=== PATIENT | female | born 1965 | race Caucasian/White ===

== ENCOUNTER 2017-07-20 09:00 | Outpatient (RCR) | payer OTHER ==
[2015-09-18 12:03] VITALS: Wt 67.9 kg
[2017-07-19 14:33] VITALS: BP 133/64
[2017-07-19 14:46] LABS: PLATELET COUNT, AUTOMATED 314 K/uL (150-450)
[~2017-07-20 09:00] MED LIST: ALB17R INH; AZIT500T47 PO; CHOL200074 PO; DOCU-202 PO; DOCU-416 PO; HYD5L PO; IBUP200C71 PO; LOR1 PO; ONDA8TAB94 PO; OXYC-865 PO; PER PO; PROC10TA4 PO; PYRI100T57 PO; PYRI100T59 PO; PYRI200T9 PO; TAMO20TA24 PO
[2017-07-20 09:13] VITALS: BP 126/79
--- NOTE | 2017-07-20 10:28 | RADIOLOGY IMAGING REPORT ---
FACILITY: [facility] PATIENT NAME: VIRI ALVARADO : [id number] MR: [id number] V: [id number] EXAM DATE: [id number] ORDERING PHYSICIAN: ALEX AGARWAL TECHNOLOGIST: Jie Castellanos PROCEDURE:RIGHT DIGITAL DIAGNOSTIC MAMMOGRAM WITH CAD ASSISTED INTERPRETATION & 3D TOMOSYNTHESIS COMPARISON:Prior mammograms 07/07/16, 07/06/15 INDICATIONS:HX BREAST CA/LEFT MASTECTOMY FINDINGS: Moderately heterogeneous fibroglandular tissue is seen throughout the Right breast. The parenchymal pattern has remained stable allowing for difference in mammographic technique & patient positioning. There is no evidence of malignant appearing mass, malignant appearing calcifications or other secondary sign of malignancy in the Right breast. DIAGNOSTIC CATEGORY 2--BENIGN FINDING. RECOMMENDATIONS: ROUTINE MAMMOGRAM AND CLINICAL EVALUATION. IMPRESSION: BIRADS 2: Benign finding No significant abnormality of the Right breast is seen. Dictated by: Caro Moreno M.D. on 07/19/2017 at 15:58 Transcribed by: MASOUD on 07/20/2017 at 8:46 Approved by: Caro Moreno M.D. on 07/20/2017 at 10:26 [facility]
--- NOTE | 2017-07-20 18:31 | ONCOLOGY FOLLOW UP NOTE ---
EVENT DATE: July 20, 2017 DIAGNOSIS Stage IIB (pT2 pN1 cM0) left breast cancer. CHIEF COMPLAINT The patient is here today for followup of her left breast cancer on adjuvant hormonal therapy with tamoxifen. ONCOLOGY HISTORY The patient is 51-year-old premenopausal woman. The patient is here today for her third cycle of adjuvant weekly Taxol for her breast cancer. She missed her last dose because [place]. Apart from having some headache , the patient really is doing very well and totally asymptomatic. The patient is here today for her sixth week of Taxol adjuvant therapy for her left breast cancer. The patient is totally asymptomatic and she is tolerating treatment really very well so far. PRESENTATION Abnormal screening mammogram done on July 06, 2015 which showed echogenically dense breasts. There was asymmetry in the upper outer quadrant of the left breast. DIAGNOSTIC EVALUATION Left digital diagnostic mammogram with whole breast ultrasound, left side, with axilla, done on July 30, 2015. The annual exam was highly suggestive of malignancy. A mammogram showed the initial architectural distortion in the upper outer aspect of the left breast, and the ultrasound did reveal poorly defined area of shadowing at 1 o'clock of the left breast, which correlates with the mammographic finding. PROCEDURES 1. Ultrasound guided left breast biopsy of the ill-defined mass at the 2 o' clock position of the left breast done on August 06, 2015. 2. Left breast mastectomy and sentinel lymph node biopsy done on September 17, 2015. PATHOLOGY 1. Positive for invasive lobular carcinoma, grade II/III, ER 37.6% positive, MN 39.9% positive, HER2/stanislav negative by immunohistochemistry. Ki-67 of 0.5%, p53 of 0.3%. 2. Pathology from the left breast mastectomy done on September 17, 2015 revealed 5 cm x 2.5 cm invasive lobular carcinoma, low grade, with negative margins. Tumor extend to within 1.25 cm of the deep margin. One out of 5 lymph nodes sampled came back positive for metastasis. ER/MN positive, HER/stanislav negative and Ki-67 of 0.6%, p53 was 0.3%. STAGE Stage IIB (pT2 pN1 cM0) TREATMENT The patient started adjuvant chemotherapy with dose dense AC with Adriamycin and cyclophosphamide on October 20, 2015. Patient completed four cycles of dose- dense AC on December 03, 2015. The patient started adjuvant weekly Taxol on November. The patient completed 12 courses of weekly Taxol on March 21, 2016. The patient started adjuvant hormonal therapy with tamoxifen 20 mg daily the beginning of March 2016. HISTORY OF PRESENT ILLNESS Patient is here today for followup of her left breast cancer on adjuvant hormonal therapy with tamoxifen. She is doing fine currently except for residual neuropathy from her previous chemotherapy with tingling and numbness in the hands and feet. PAST MEDICAL HISTORY History of left breast cancer diagnosed 2016. PAST SURGICAL HISTORY 1. on April 03, 1994. 2. Adenoidectomy. 3. Left breast mastectomy and sentinel lymph node biopsy done on September 17, 2015. SOCIAL HISTORY The patient is . She has two children, a son and a daughter. She works as university cosmetology educator. She had about three drinks per month. Denies any abuse of tobacco or illicit drugs. FAMILY HISTORY Father had lung cancer with brain metastasis in his seventies. A grandmother had breast cancer at age of seventy years of age. CURRENT MEDICATIONS 1. Ativan 1 mg q.4-6h. p.r.n. for nausea and vomiting. 2. Zofran 8 mg q.8h. p.r.n. for nausea and vomiting. 3. Compazine 10 mg q.6h. p.r.n. for nausea and vomiting. ALLERGIES PENICILLIN, but the patient does not know exactly the reaction, as it happened when she was a baby. REVIEW OF SYSTEMS CONSTITUTIONAL: No appetite or weight change. No fever, chills or sweating. No recent infection. HEENT: Ears: No tinnitus or hearing problem. Nose: The patient has some epistaxis. Throat: No sore throat or mouth ulcers. Eyes: No diplopia or visual changes. RESPIRATORY: No shortness of breath. No cough, expectoration or hemoptysis. CARDIOVASCULAR: No chest pain, orthopnea, or paroxysmal nocturnal dyspnea (PND) . No edema. No palpitations. GASTROINTESTINAL: No nausea or vomiting. No diarrhea or constipation. No change in bowel movements. No heartburn or swallowing difficulties. No abdominal pain. No jaundice. No hematemesis, melena or rectal bleeding. GENITOURINARY: No hematuria or dysuria. MUSCULOSKELETAL: No pain in the muscles, joints or bones. NEUROLOGICAL: The patient has tingling and numbness in the hands and feet. HEMATOLOGIC/LYMPHATIC: No bleeding or easy bruising. No weakness or fatigue. No enlarged lymph nodes. SKIN: No skin rash or lumps. PSYCHIATRIC: No anxiety or depression. PHYSICAL EXAMINATION GENERAL: Looks stable. Well-developed, well-nourished, and in no acute distress. VITAL SIGNS: Blood pressure 126/79, pulse 71 per minute, respirations 16 per minute, temperature 96.4, pulse ox 95% on room air. HEENT: Head: Atraumatic. No sinus tenderness to palpation. Eyes: No icterus or conjunctivitis. Mouth and throat: No oral thrush or mucositis. NECK: Supple. No cervical or supraclavicular lymphadenopathy. LUNGS: Clear to auscultation and percussion bilaterally. HEART: Regular rate and rhythm. No gallops, murmurs, clicks or rubs. ABDOMEN: Soft and lax. No tenderness. No hepatosplenomegaly. No masses. EXTREMITIES: No cyanosis, clubbing or edema. LYMPHATICS: No peripheral lymphadenopathy. NEUROLOGICAL: Conscious, alert and oriented times three. No focal motor or sensory deficits. PSYCHIATRIC: Mood and affect appear normal. SKIN: No skin rash, bruise or purpuric eruption. DIAGNOSTIC DATA CBC showed a white count of 5.1, hemoglobin 14.5, hematocrit 42.9, platelets 314 ,000. Chem panel is totally normal. ASSESSMENT 1. Stage IIB (pT2 pN1 cM0) left breast invasive lobular carcinoma status post left breast mastectomy with left sentinel lymph node biopsy done September 17, 2015 for 5 cm invasive lobular carcinoma low grade with negative margins, ER/MN positive HER2/stanislav negative. One out of five lymph nodes came back positive for metastasis. Patient received four cycles of dose-dense AC between October 20, 2015 through December 03, 2015, followed by 12 weekly doses of Taxol between December 18, 2015 through February. Patient started adjuvant hormonal therapy with tamoxifen 20 mg daily, March 2016. She is tolerating treatment very well without any complications. I am planning to continue followup. I will see her again in three months with CBC, chem panel and CA 27-29. 2. 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 We will continue to monitor. PLAN 1. Continue tamoxifen 20 mg daily. 2. Patient to return in three months with CBC, chem panel, CA 27-29. 3. Patient is to contact us for any new concerns or complaints. [facility]
== END 2017-10-16 ==
LOC: ONC 09:00
PROVIDERS: ATTEND Internal Medicine Hematology
DX: C50.412 Malignant neoplasm of upper-outer quadrant of left female breast (principal); G62.0 Drug-induced polyneuropathy; Z17.0 Estrogen receptor positive status [ER+]; C77.9 Secondary and unspecified malignant neoplasm of lymph node, unspecified; R51 Headache; Z92.21 Personal history of antineoplastic chemotherapy
CPT/HCPCS: 36415; 77065; 82040; 82247; 82310; 82374; 82435; 82565; 82947; 84075; 84132; 84155; 84295; 84450; 84460; 84520; 85025; 99212

== ENCOUNTER 2017-10-27 11:58 | Outpatient (RCR) | payer OTHER ==
[2015-09-18 12:03] VITALS: Wt 67.9 kg
[2017-10-23 13:27] LABS: PLATELET COUNT, AUTOMATED 267 K/uL (150-450)
[2017-10-27 12:00] VITALS: BP 127/69
--- NOTE | 2017-10-27 16:34 | ONCOLOGY FOLLOW UP NOTE ---
EVENT DATE: October 27, 2017 DIAGNOSIS Stage IIB (pT2 pN1 cM0) left breast cancer. CHIEF COMPLAINT The patient is here today for followup of her left breast cancer on adjuvant hormonal therapy with tamoxifen. ONCOLOGY HISTORY The patient is 52-year-old premenopausal woman. The patient is here today for her third cycle of adjuvant weekly Taxol for her breast cancer. She missed her last dose because [place]. Apart from having some headache , the patient really is doing very well and totally asymptomatic. The patient is here today for her sixth week of Taxol adjuvant therapy for her left breast cancer. The patient is totally asymptomatic and she is tolerating treatment really very well so far. PRESENTATION Abnormal screening mammogram done on July 06, 2015 which showed echogenically dense breasts. There was asymmetry in the upper outer quadrant of the left breast. DIAGNOSTIC EVALUATION Left digital diagnostic mammogram with whole breast ultrasound, left side, with axilla, done on July 30, 2015. The annual exam was highly suggestive of malignancy. A mammogram showed the initial architectural distortion in the upper outer aspect of the left breast, and the ultrasound did reveal poorly defined area of shadowing at 1 o'clock of the left breast, which correlates with the mammographic finding. PROCEDURES 1. Ultrasound guided left breast biopsy of the ill-defined mass at the 2 o' clock position of the left breast done on August 06, 2015. 2. Left breast mastectomy and sentinel lymph node biopsy done on September 17, 2015. PATHOLOGY 1. Positive for invasive lobular carcinoma, grade II/III, ER 37.6% positive, SD 39.9% positive, HER2/stanislav negative by immunohistochemistry. Ki-67 of 0.5%, p53 of 0.3%. 2. Pathology from the left breast mastectomy done on September 17, 2015 revealed 5 cm x 2.5 cm invasive lobular carcinoma, low grade, with negative margins. Tumor extend to within 1.25 cm of the deep margin. One out of 5 lymph nodes sampled came back positive for metastasis. ER/SD positive, HER/stanislav negative and Ki-67 of 0.6%, p53 was 0.3%. STAGE Stage IIB (pT2 pN1 cM0) TREATMENT The patient started adjuvant chemotherapy with dose dense AC with Adriamycin and cyclophosphamide on October 20, 2015. Patient completed four cycles of dose- dense AC on December 03, 2015. The patient started adjuvant weekly Taxol on November. The patient completed 12 courses of weekly Taxol on March 21, 2016. The patient started adjuvant hormonal therapy with tamoxifen 20 mg daily the beginning of March 2016. HISTORY OF PRESENT ILLNESS Patient is here today for followup of her left breast cancer on adjuvant hormonal therapy with tamoxifen. Patient is doing very well currently. Apart from having residual neuropathy in her hands and feet from her previous chemotherapy, patient does not have any other complaints. PAST MEDICAL HISTORY History of left breast cancer diagnosed 2016. PAST SURGICAL HISTORY 1. on April 03, 1994. 2. Adenoidectomy. 3. Left breast mastectomy and sentinel lymph node biopsy done on September 17, 2015. SOCIAL HISTORY The patient is . She has two children, a son and a daughter. She works as university medical educator. She had about three drinks per month. Denies any abuse of tobacco or illicit drugs. FAMILY HISTORY Father had lung cancer with brain metastasis in his seventies. A grandmother had breast cancer at age of seventy years of age. CURRENT MEDICATIONS 1. Ativan 1 mg q.4-6h. p.r.n. for nausea and vomiting. 2. Zofran 8 mg q.8h. p.r.n. for nausea and vomiting. 3. Compazine 10 mg q.6h. p.r.n. for nausea and vomiting. 4. Tamoxifen 20 mg daily. ALLERGIES PENICILLIN, but the patient does not know exactly the reaction, as it happened when she was a baby. REVIEW OF SYSTEMS CONSTITUTIONAL: No appetite or weight change. No fever, chills or sweating. No recent infection. HEENT: Ears: No tinnitus or hearing problem. Nose: The patient has some epistaxis. Throat: No sore throat or mouth ulcers. Eyes: No diplopia or visual changes. RESPIRATORY: No shortness of breath. No cough, expectoration or hemoptysis. CARDIOVASCULAR: No chest pain, orthopnea, or paroxysmal nocturnal dyspnea (PND) . No edema. No palpitations. GASTROINTESTINAL: No nausea or vomiting. No diarrhea or constipation. No change in bowel movements. No heartburn or swallowing difficulties. No abdominal pain. No jaundice. No hematemesis, melena or rectal bleeding. GENITOURINARY: No hematuria or dysuria. MUSCULOSKELETAL: No pain in the muscles, joints or bones. NEUROLOGICAL: The patient has tingling and numbness in the hands and feet from her previous chemotherapy. HEMATOLOGIC/LYMPHATIC: No bleeding or easy bruising. No weakness or fatigue. No enlarged lymph nodes. SKIN: No skin rash or lumps. PSYCHIATRIC: No anxiety or depression. PHYSICAL EXAMINATION GENERAL: Looks stable. Well-developed, well-nourished, and in no acute distress. VITAL SIGNS: Blood pressure 127/69, pulse 84 per minute, respirations 16 per minute, temperature 97.3, pulse ox 88% on room air. HEENT: Head: Atraumatic. No sinus tenderness to palpation. Eyes: No icterus or conjunctivitis. Mouth and throat: No oral thrush or mucositis. NECK: Supple. No cervical or supraclavicular lymphadenopathy. LUNGS: Clear to auscultation and percussion bilaterally. HEART: Regular rate and rhythm. No gallops, murmurs, clicks or rubs. ABDOMEN: Soft and lax. No tenderness. No hepatosplenomegaly. No masses. EXTREMITIES: No cyanosis, clubbing or edema. LYMPHATICS: No peripheral lymphadenopathy. NEUROLOGICAL: Conscious, alert and oriented times three. No focal motor or sensory deficits. PSYCHIATRIC: Mood and affect appear normal. SKIN: No skin rash, bruise or purpuric eruption. DIAGNOSTIC DATA CBC showed a white count of 5.4, hemoglobin 14.3, hematocrit 41.8, platelets 267 ,000. Chem panel is totally normal. CA 27-29 is normal at 5.7. ASSESSMENT 1. Stage IIB (pT2 pN1 cM0) left breast invasive lobular carcinoma status post left breast mastectomy with left sentinel lymph node biopsy done September 17, 2015 for 5 cm invasive lobular carcinoma low grade with negative margins, ER/SD positive HER2/stanislav negative. One out of five lymph nodes came back positive for metastasis. Patient received four cycles of dose-dense AC between October 20, 2015 through December 03, 2015, followed by 12 weekly doses of Taxol received between December 18, 2015 through February. Patient started adjuvant hormonal therapy with tamoxifen 20 mg daily, March 2016. Patient is tolerating tamoxifen very well without complications or side effects. Her tumor marker with CA 27-29 is normal at 5.7. I am planning to continue followup. I will see her again in three months with CBC, chem panel and CA 27-29. 2. Chemotherapy-induced neuropathy due which is stable. Will continue to monitor. PLAN 1. Continue tamoxifen 20 mg daily. 2. Patient to return in three months with CBC, chem panel, CA 27-29. 3. Patient is to contact us for any new concerns or complaints. [facility]
== END 2017-10-31 10:16 | disposition home or self-care (01) ==
LOC: ONC 11:58
PROVIDERS: ATTEND Internal Medicine Hematology
DX: C50.912 Malignant neoplasm of unspecified site of left female breast (principal); Z17.0 Estrogen receptor positive status [ER+]; Z79.810 Long term (current) use of selective estrogen receptor modulators (SERMs); G62.0 Drug-induced polyneuropathy
CPT/HCPCS: 36415; 82040; 82247; 82310; 82374; 82435; 82565; 82947; 84075; 84132; 84155; 84295; 84450; 84460; 84520; 85025; 86300; 99212

== ENCOUNTER 2018-01-19 15:00 | Outpatient (RCR) | payer OTHER ==
[2015-09-18 12:03] VITALS: BMI 27.4
[~2018-01-19 15:00] MED LIST changes: +IBUP-136 PO; -IBUP200C71 PO
[2018-01-19 15:56] LABS: PLATELET COUNT, AUTOMATED 290 K/uL (150-450)
[2018-01-19 15:58] VITALS: BP 125/74
== END 2018-03-21 08:34 | disposition home or self-care (01) ==
LOC: SPU 15:00
PROVIDERS: ATTEND Internal Medicine Hematology
DX: C50.912 Malignant neoplasm of unspecified site of left female breast (principal)
CPT/HCPCS: 36415; 82040; 82247; 82310; 82374; 82435; 82565; 82947; 84075; 84132; 84155; 84295; 84450; 84460; 84520; 85025; 86300